=== PATIENT | female | born 1975 | race Caucasian/White ===

== ENCOUNTER 2022-05-14 07:41 | Outpatient (CLI) | payer OTHER, SELFPAY ==
--- NOTE | 2022-05-14 08:15 | CRLHL7_ITS ---
For Patients: As a result of the Century Cures Act, medical imaging exams and procedure reports are released immediately into your electronic medical record. You may view this report before your referring provider. If you have questions, please contact your health care provider. ULTRASOUND-GUIDED RIGHT BREAST BIOPSY AND POST-BIOPSY DIGITAL MAMMOGRAM FOR BIOPSY MARKER PLACEMENT CLINICAL HISTORY: Indeterminate palpable solid nodule RIGHT breast. COMPARISON STUDIES: 05/04/2022 TECHNIQUE: Real-time ultrasound with image documentation was used for targeting the breast lesion. Core biopsy specimens were obtained using an automated gun with a 18-gauge biopsy needle. Post-biopsy CC and ML digital mammograms were obtained to document position of the biopsy marker. CONSENT and TIME OUT: The procedure, risks, and alternatives were explained to the patient and a consent was signed. [place] Protocol was followed including pre-procedure verification that relevant information/documentation was available, reviewed and properly matched to the patient; consent accurate and complete; and equipment and supplies available. Time Out was conducted just prior to starting procedure to verify the four required elements: patient identity, correct side/site marked (if applicable), procedure, relevant images/results properly labeled and displayed (if applicable). PROCEDURE: The patient was positioned supine on the ultrasound table. The breast was prepped with ChloraPrep. 10 cc of 1 percent lidocaine was used for local anesthesia. Core samples were obtained. A sterile metal biopsy clip was placed percutaneously to kentrell the lesion position within the breast. The specimens were placed in 10% formalin and sent to the pathology department. Pressure was held on the biopsy site until all bleeding subsided. The skin incision was closed with Steri-Strips. An ice pack was positioned over the biopsy site. Post-biopsy instructions were reviewed with the patient, and a written copy was given to her. LATERALITY: RIGHT breast. LESION: Solid hypoechoic solid nodule measuring 6 x 8 x 8 millimeters at 10 o`clock 4 cm from the nipple. SUSPICION FOR MALIGNANCY: High. NUMBER OF SAMPLES: 5 BIOPSY CLIP SHAPE: Coil. PROXIMITY OF CLIP TO TARGET: Within the lesion. IMPRESSION: Ultrasound-guided breast biopsy. When the pathology report is available, an addendum to this report will be made. ACR not applicable Dictated by Toni Padilla MD @ 05/14/2022 10:04:23 AM PT/Dictated by: Toni Padilla MD @ 05/14/2022 10:04:00 AM ----- ADDENDUM ----- IMPRESSION: Pathology demonstrates fat necrosis, fibrosis and inflammation. This may be potentially dis concordant. Surgical excision should be considered. Dictated by Toni Padilla MD @ May 14 2022 10:04AM Signed by:?Toni Padilla MD @05/14/2022 11:23:40 AM (Electronically Signed)
--- NOTE | 2022-05-14 09:00 | CRLHL7_ITS ---
For Patients: As a result of the Cures Act, medical imaging exams and procedure reports are released immediately into your electronic medical record. You may view this report before your referring provider. If you have questions, please contact your health care provider. PLEASE SEE RIGHT ULTRASOUND-GUIDED BIOPSY OF SAME DAY. CRL:[email or web address] PT/Dictated by: Toni Padilla MD @ 05/14/2022 10:04:00 AM (Electronically Signed)
== END 2022-05-14 07:42 | disposition home or self-care (01) ==
LOC: US 07:45
PROVIDERS: PCP Physician Assistant Medical; Visit Provider Physician Assistant
DX: N63.10 Unspecified lump in the right breast, unspecified quadrant (principal)
CPT/HCPCS: 19083; 77065; 88305; A4648; A4649